=== PATIENT | female | born 1945 ===

== ENCOUNTER 2018-02-19 06:03 | Day surgery (SDC) | payer OTHER ==
[~2018-02-19] VITALS: Ht 160 cm; Wt 51.3 kg
[2018-02-19] VITALS (11 sets, daily range): BP systolic 116–153; BP diastolic 50–83
[2018-02-19] MEDS: Phenylephrine 2.5% Op 2ml Soln RIGHT EYE SCH ×3 (05:30→07:09)
[~2018-02-19 06:03] MED LIST: FIORINAL WITH1 EACH PO; FOLIC ACID0.8 MG ORAL; METHOTREXATE2.5 MG PO; Proparacaine 0.5% Opth Soln 15ml RIGHT EYE ONE; SOMA350 MG PO; VITAMIN D1000 UNI1 ORAL; WARFARIN SODIUM4 MG ORAL; ZOLOFT50 MG ORAL
[2018-02-19] MEDS: Cyclopentolate 1% Opth Sol 2ml RIGHT EYE SCH ×3 (06:45→07:09)
[2018-02-19] MEDS: Tropicamide 1% Opth 15ml Soln RIGHT EYE SCH ×3 (06:45→07:09)
[2018-02-19] MEDS ORDERED: fentaNYL 100 mcg/2 mL IV ONE (07:09)
[2018-02-19] MEDS ORDERED: Lidocaine 1% MPF 10mg/ml 5ml ONE (07:09)
[2018-02-19] MEDS ORDERED: EPINEPHrine 1mg/1ml Amp ONE (07:09)
[2018-02-19] MEDS ORDERED: Midazolam 2mg/2ml Inj ONE (07:09)
[2018-02-19] MEDS ORDERED: Propofol 200mg/20ml IV ONE (07:09)
[2018-02-19] MEDS ORDERED: Kenalog-40 1ml Vial ONE (07:10)
[2018-02-19] MEDS ORDERED: Pred Forte 1% Opth Susp 1ml ONE (07:10)
[2018-02-19] MEDS ORDERED: Goniosol 2.5% Opth Soln - 15ml ONE (07:10)
[2018-02-19] MEDS ORDERED: Maxitrol Opth Oint 3.5gm ONE (07:10)
[2018-02-19] MEDS ORDERED: Carbachol 0.01% Op Soln 1.5ml vial ONE (07:10)
[2018-02-19] MEDS ORDERED: Lidocaine 2% MPF 5ml Vial INJ ONE (07:10)
[2018-02-19] MEDS ORDERED: Dexamethasone 4mg/ml vial ONE (07:10)
[2018-02-19] MEDS ORDERED: Povidone-Iodine 5% opth solution ONE (07:11)
[2018-02-19] MEDS ORDERED: BSS 500ml btl ONE (07:11)
[2018-02-19] MEDS ORDERED: BSS 15ml BTL ONE (07:11)
[2018-02-19] MEDS ORDERED: Bupivacaine 0.75% 30ml vial INJ ONE (07:11)
[2018-02-19] MEDS ORDERED: Sodium Hyaluronate 10 mg/ml 0.85ml ONE (07:12)
--- NOTE | 2018-02-19 07:22 | Anethesia Preoperative Eval ---
Anesthesia Pre-op PMH/ROS General Date of Evaluation: Feb 19, 2018 Anesthesiologist: Prince ASA Score: ASA 2 Mallampati Score Class I : Soft palate, uvula, fauces, pillars visible Class II: Soft palate, uvula, fauces visible Class III: Soft palate, base of uvula visible Class IV: Only hard plate visible Mallampati Classification: Class II Surgeon: Kip Diagnosis: Right eye endopthalmitis Surgical Procedure: Right eye vitrectomy Anesthesia History: none Family History: no anesthesia problems Allergies: Coded Allergies: MORPHINE (Verified Allergy, Intermediate, "intensify the pain", 02/18/18) Medications: see eMAR Past Medical History Cardiovascular: Reports: HTN; Denies: CAD, NC, valve dz, arrhythmia, other Pulmonary: Denies: asthma, COPD, GERALD, other Gastrointestinal/Genitourinary: Denies: GERD, CRI, ESRD, other Neurologic/Psychiatric: Reports: depression/anxiety; Denies: dementia, CVA, TIA, other Endocrine: Denies: DM, hypothyroidism, steroids, other HEENT: Denies: cataract (L), cataract (R), glaucoma, [place] (L), [place] (R), other Hematology/Immune: Reports: anemia - chronic, other - protein s deficiency; Denies: DVT, bleeding disorder Musculoskeletal/Integumentary: Reports: OA, RA; Denies: DJD, DDD, edema, other PSxH Narrative: T&A, appy, bilateral cataract, lumbar fusion, right femur orif, right ankle orif , bilateral wrist sx Anesthesia Pre-op Phys. Exam Physician Exam Last Vital Signs Date Time Temp Pulse Resp B/P (MAP) Pulse Ox O2 Delivery O2 Flow Rate FiO2 02/19/18 07:13 97.8 66 20 129/77 (94) 100 97.8 02/19/18 06:50 Room Air Constitutional: NAD Cardiovascular: RRR Respiratory: CTA Airway Exam Mallampati Score: Class II MO: full ROM: full Teeth: intact Anesthesia Pre-op A/P Labs see chart Studies Pre-op Studies: EKG - sr Risk Assessment & Plan Assessment: ASA II Plan: MAC Status Change Before Surgery: No Pre-Antibiotics Drug: N/A Teresa Berg MD Feb 19, 2018 07:22
[2018-02-19] MEDS ORDERED: Sterile Water Irrig 1000ml IRRIG ONE (07:30)
[2018-02-19] MEDS ORDERED: LR 1000ml ONE (07:30)
[2018-02-19] MEDS ORDERED: NS Irrig 1000ml ONE (07:30)
[2018-02-19] MEDS ORDERED: LR 1000ml 1,000 ML IVLG SCH (07:34)
--- NOTE | 2018-02-19 07:43 | Pre-Procedure Note/Attestation ---
Pre-Procedure Note/Attestation Complete Prior to Procedure Planned Procedure: right Procedure Narrative: Endophthalmitis and retained lens fragment, right eye Indications for Procedure Pre-Operative Diagnosis: Endophthalmitis and retained lens fragment, right eye Attestation I attest that I discussed the nature of the procedure; its benefits; risks and complications; and alternatives (and the risks and benefits of such alternatives ), prior to the procedure, with the patient (or the patient's legal wireless sales representative). I attest that, if there was a reasonable possibility of needing a blood transfusion, the patient (or the patient's legal wireless sales representative) was given the [facility] standardized written summary, pursuant to the [place] Blood Safety Act ([place] Health and Safety Code # 1645, as amended). I attest that I re-evaluated the patient just prior to the surgery and that there has been no change in the patient's H&P, except as documented below: Robert Shin M.D., MD Feb 19, 2018 07:43
[2018-02-19] MEDS ORDERED: Labetalol 5mg/ml 20ml vial IV PRN (07:45)
[2018-02-19] MEDS ORDERED: DiphenhydrAMINE 50mg/ml Inj IVP PRN (07:45)
--- NOTE | 2018-02-19 07:52 | Operative Note - PDOC ---
Operative Note Operative Note Date of Operation/Procedure: Feb 19, 2018 Chief Complaint: Vision loss Pre-op Diagnosis: Endophthalmitis and retained lens fragment, right eye Procedure: PPV/AC washout/PPL/EL/AFE/C3F8 OD Post-op Diagnosis: Post-operative Diagnosis: Endophthalmitis, retained lens fragment, possible retinitis versus retinal vein occlusion, RIGHT EYE Surgeon: Kip Anesthesia: general Specimen: yes Complications: none Condition: stable Estimated Blood Loss: minimal Drains: none Implant(s) used?: No Indications for Procedure Location: [facility] [place] Pre-operative Diagnosis: Endophthalmitis and retained lens fragment, RIGHT EYE Post-operative Diagnosis: Endophthalmitis, retained lens fragment, possible retinitis versus retinal vein occlusion, RIGHT EYE Procedure: Pars plana vitrectomy, AC washout, lensectomy/phacofragmentation, air-fluid exchange, endolaser, [id number] (14%), RIGHT EYE Surgeon: Robert Shin M.D. Anesthesia: GA Complications: None Indications for the procedure: The patient has vision loss due endophthalmitis and presents today for surgery after review of the risks, benefits, alternative and signing informed consent into the medical chart. Description of Procedure Procedure performed: The patient was met in the pre-operative area where informed consent was reviewed. The operative eye was verified, marked and dilated. The patient was transferred to the operative suite, where cardiopulmonary monitoring was established and general anesthesia was induced without complications. The eye was prepped and draped in sterile ophthalmic fashion. Under microscope visualization the 23 gauge infusion line was placed 3.5 millimeters inferotemporally. Upon faint visualization of the tip in the vitreous cavity, the infusion line was turned on. The superotemporal and superonasal cannulas were placed. AC sample was sent to microbiology. The AC was then washed out with BSS and the cutter was used to aspirate the hypopyon and the dense pupillary membrane. Under BIOM visualization, peripheral and core vitrectomy was performed. There were vitreous clumps/abscesses and lens fragments. PVD was induced then the lens fragments were removed with the cutter and phacofrag. 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 There was active hemorrhage from an area of retinal necrosis inferior; air-fluid exchange was performed to achieve hemostasis. Endolaser was applied to this area and the periphery. Inspection of the periphery revealed no iatrogenic breaks. Then C3F8 was infused into the eye. The cannulas were removed and sutured. The eye maintained normal intraocular pressure. Subconjunctival vancomycin and dexamethasone were administered. The lid speculum was removed. The eye was cleaned of prep and drape. Atropine drop and Maxitrol ointment was applied. A pressure patch was placed. The patient was turned over to the anesthesia team and transferred in stable condition to the PACU. Robert Shin M.D., MD Feb 19, 2018 07:52
[2018-02-19] MEDS ORDERED: Indocyanine Green 25mg Inj INJ ONE ×2 (08:30→08:45)
--- NOTE | 2018-02-19 09:01 | Immediate Post-Op Evaluation ---
Immediate Post-Op Evalulation Immediate Post-Op Evalulation Procedure: Right eye vitrectomy Date of Evaluation: Feb 19, 2018 Time of Evaluation: 09:03 IV Fluids: 500 Blood Products: 0 Estimated Blood Loss: 0 Urinary Output: 0 Blood Pressure Systolic: 150 Blood Pressure Diastolic: 83 Pulse Rate: 75 Respiratory Rate: 16 O2 Sat by Pulse Oximetry: 100 Temperature (Fahrenheit): 97.5 Pain Score (1-10): 0 Nausea: No Vomiting: No Complications 0 Patient Status: awake, reacts, patent, none Hydration Status: adequate Drug: N/A Teresa Berg MD Feb 19, 2018 09:01
--- NOTE | 2018-02-19 09:02 | 48 Hour Post Anesthesia Eval ---
Post Anesthesia Evaluation Procedure: Right eye vitrectomy Date of Evaluation: Feb 19, 2018 Airway: patent Nausea: No Vomiting: No Pain Intensity: 0 Hydration Status: adequate Cardiopulmonary Status: baseline Mental Status/LOC: patient returned to baseline Post-Anesthesia Complications: 0 Follow-up care needed: ready to discharge Teresa Berg MD Feb 19, 2018 09:02
[2018-02-19] MEDS: fentaNYL 100 mcg/2 mL IV PRN ×2 (09:58→10:10)
[2018-02-19] MEDS ORDERED: Norco 5mg/325mg tab ONE (10:53)
[2018-02-19] MEDS ORDERED: Norco 5mg/325mg tab ORAL ONE (11:00)
== END 2018-02-19 12:25 | disposition home or self-care (01) ==
LOC: SUR 06:03
DX: H44.001 Unspecified purulent endophthalmitis, right eye (principal); H59.021 Cataract (lens) fragments in eye following cataract surgery, right eye; E03.9 Hypothyroidism, unspecified; I10 Essential (primary) hypertension; F32.9 Major depressive disorder, single episode, unspecified; F41.9 Anxiety disorder, unspecified; M19.041 Primary osteoarthritis, right hand; D68.59 Other primary thrombophilia; G89.29 Other chronic pain; M06.9 Rheumatoid arthritis, unspecified; M51.16 Intervertebral disc disorders with radiculopathy, lumbar region; Z86.718 Personal history of other venous thrombosis and embolism; Z79.01 Long term (current) use of anticoagulants; Z88.5 Allergy status to narcotic agent
CPT/HCPCS: 67039; 87070; 87205; J1100; J2704; J3010; J3370; J7120; 94003; 94150; J2250